=== PATIENT | female | born 1990 | race Asian ===

== ENCOUNTER 2016-08-08 04:40 | Inpatient (IN) | payer SELFPAY ==
[~2016-08-08] VITALS: Ht 167.6 cm; Wt 68.9 kg
[2016-08-08 05:16] VITALS: BP 115/75
[2016-08-08] MEDS ORDERED: LACTATED RINGERS 1,000 ML IV SCH (05:39)
[2016-08-08] MEDS ORDERED: OXYTOCIN 20 UNITS/LR PREMIX 1,000 ML IV SCH (05:39)
[2016-08-08] MEDS ORDERED: NALBUPHINE 10 MG/ML AMP IVP PRN (05:40)
[2016-08-08] MEDS ORDERED: METHYLERGONOVINE 0.2 MG/ML AMP IM PRN ×2 (05:40→18:00)
[2016-08-08] MEDS ORDERED: IBUPROFEN 800 MG TAB PO PRN ×2 (05:40→18:00)
[2016-08-08] MEDS ORDERED: CARBOPROST 250 MCG/ML AMP IM PRN (05:40)
[2016-08-08] MEDS ORDERED: PROMETHAZINE 25 MG/ML VIAL IVP PRN (05:40)
[2016-08-08 06:11] LABS: APPEARANCE,URINE HAZY (CLEAR); BILIRUBIN,URINE NEGATIVE (NEGATIVE); BLOOD, URINE TRACE-I (NEGATIVE); COLOR,URINE YELLOW (YELLOW); LEUKOCYTE ESTERASE ,URINE NEGATIVE (NEGATIVE); NITRITE, URINE NEGATIVE (NEGATIVE); PH,URINE 5.5 (5.0-9.0); PROTEIN,URINE NEGATIVE (NEGATIVE); UGLUCOSE NEGATIVE (NEGATIVE); UROBILINOGEN,URINE 0.2 EU/dL (0.2 - 1)
[2016-08-08 06:13] LABS: BASOPHILS % (AUTO) 0.4 % (0.0-2.0); EOSINOPHILS # (AUTO) 0.2 K/uL (0-0.4); EOSINOPHILS % (AUTO) 1.4 % (0.0-4.0); HEMATOCRIT 37.7 % (36-48); HEMOGLOBIN 12.6 g/dL (12.0-16.0); LYMPHOCYTES # (AUTO) 1.9 K/uL (2.5-16.5); LYMPHOCYTES % (AUTO) 17.4 % (20.5-51.1); MEAN CORPUSCULAR HEMOGLOBIN 30 pg (27-31); MEAN CORPUSCULAR HGB CONC 33 g/dL (33-37); MEAN CORPUSCULAR VOLUME 88 fL (80-94); MONOCYTES # (AUTO) 0.7 K/uL (0.8-1.0); MONOCYTES % (AUTO) 6.1 % (1.7-9.3); NEUTROPHILS # (AUTO) 7.9 K/uL (1.8-7.7); NEUTROPHILS % (AUTO) 74.7 % (42.2-75.2); PLATELET COUNT (AUTO) 108 K/uL (140-450); RED BLOOD CELL COUNT(AUTO) 4.26 MIL/uL (4.20-5.40); RED CELL DISTRIBUTION WIDTH 12.2 % (11.6-13.7); WHITE BLOOD COUNT (AUTO) 10.7 K/uL (4.8-10.8)
[2016-08-08 06:25] LABS: BACTERIA,URINE OCCASSIONAL /HPF (None Seen); RBC,URINE 0-5 (RARE) /HPF (0-5); SQUAMOUS EPITHELIAL CELL,UR 4-10 (MOD) /LPF (0-3 (FEW)); WBC,URINE 0-5 (RARE) /HPF (0-5)
[2016-08-08] MEDS ORDERED: PREN-380 PO (06:49)
[2016-08-08] MEDS ORDERED: AMPICILLIN 2,000 MG in NACL 0.9% 100 ML IV SCH (07:32)
[2016-08-08] MEDS ORDERED: AMPICILLIN 2,000 MG VIAL ONE (07:44)
[2016-08-08] MEDS ORDERED: ROPIVACAINE 0.2%/NS PREMIX 250 ML EPI ONE (08:15)
--- NOTE | 2016-08-08 08:28 | NUR ---
PATIENT HAS BEEN SCREENED AND CATEGORIZED LOW NUTRITION RISK. PATIENT WILL BE SEEN WITHIN 7 DAYS OF ADMISSION. 08/14/[address]
[2016-08-08] MEDS ORDERED: OXYTOCIN 20 UNITS/LR PREMIX 1,000 ML IV ONE (09:37)
[2016-08-08] MEDS ORDERED: OXYTOCIN 10 UNITS/ML VIAL IM SCH (12:00)
[2016-08-08] MEDS ORDERED: OXYTOCIN 10 UNITS/ML VIAL ONE (16:16)
[2016-08-08] MEDS ORDERED: BENZOCAINE/MENTHOL 20%-0.5% 60 GM CAN TP PRN (18:00)
[2016-08-08] MEDS ORDERED: MEASLES, MUMPS, AND RUBELLA 1 VIAL SQVAC PRN (18:00)
[2016-08-08] MEDS ORDERED: TEMAZEPAM 15 MG CAP PO PRN (18:00)
[2016-08-08] MEDS ORDERED: oxyCODONE/APAP 5/325 MG 1 TAB TAB PO PRN (18:00)
[2016-08-08] MEDS ORDERED: OXYTOCIN 10 UNITS/ML VIAL IM PRN (18:00)
[2016-08-08] MEDS ORDERED: WITCH HAZEL 40 PAD PACKAGE TP PRN (18:00)
[2016-08-08] MEDS ORDERED: HYDROcodone/APAP 5/325 MG 1 TAB TAB PO PRN (18:00)
[2016-08-08] MEDS ORDERED: DOCUSATE SOD/SENNA 50/8.6 MG 1 TAB PO SCH (21:00)
[2016-08-09 06:02] LABS: HEMOGLOBIN 10.7 g/dL (12.0-16.0)
== END 2016-08-10 14:55 | disposition home or self-care (01) | DRG 775 ==
LOC: MLD 04:40 → MFCC 21:10
PROVIDERS: ADMIT Obstetrics & Gynecology; ATTEND Obstetrics & Gynecology
PROC: 10E0XZZ Delivery of Products of Conception, External Approach (ICD-10-PCS; principal; 2016-08-08)
PROC: 0W8NXZZ Division of Female Perineum, External Approach (ICD-10-PCS; 2016-08-08)
PROC: 10907ZC Drainage of Amniotic Fluid, Therapeutic from Products of Conception, Via Natural or Artificial Opening (ICD-10-PCS; 2016-08-08)
PROC: 00HU33Z Insertion of Infusion Device into Spinal Canal, Percutaneous Approach (ICD-10-PCS; 2016-08-08)
PROC: 3E0R3CZ (ICD-10-PCS; 2016-08-08)
DX: O70.9 Perineal laceration during delivery, unspecified (principal); Z3A.39 39 weeks gestation of pregnancy; Z37.0 Single live birth; Z28.21 Immunization not carried out because of patient refusal
CPT/HCPCS: 36415; 51702; 59409; 81001; 85018; 85025; 86592; 86886; 86900; 86901; 87340; 87653-90; J0290; J2590; J2795; J7120